=== PATIENT | female | born 1970 | race Caucasian/White ===

== ENCOUNTER 2016-10-05 13:17 | Emergency (ER) | payer OTHER ==
[2016-10-05 14:39] VITALS: BP 130/75; PULSE 90; RESP 20; TEMP 98.6; O2SAT 98
[2016-10-05] MEDS ORDERED: IPRATROPIUM/ALBUTEROL 3 ML DEYVIAL IH ONE (15:55)
--- NOTE | 2016-10-05 15:56 | UCPHY ---
H & P Time Seen by Provider: 10/05/16 15:46 Patient Type: New HPI/ROS: 45-year-old female presents complaining of severe cough, productive of phlegm. She states his recently treated for sinusitis with Augmentin and she is on day number 7. She has a ProAir inhaler which she often uses however no diagnosis of asthma Review of systems As per HPI General positive fever positive chills no weakness HEENT no eye pain no eye discharge. No eye redness, no sore throat Respiratory positive cough, no shortness of breath Cardiac no chest pain, no peripheral edema GI no abdominal pain, no diarrhea, no constipation, no nausea, no vomiting no flank pain, no hematuria, no dysuria Musculoskeletal positive myalgias, no joint pain Heme no easy bruising, no easy bleeding Endo no polyuria, no polydipsia Skin no rashes, no pruritus Neuro no syncope, no dizziness, no headaches Psych is no suicidal ideation, no homicidal ideation Past Medical/Surgical History: Sinusitis Social History: Alcohol socially, denies drug use Smoking Status: Never smoked Physical Exam: 45-year-old female with coarse cough Alert and oriented nontoxic appearance, no acute distress afebrile Atraumatic normocephalic Extraocular muscles intact, anicteric Nares mild yellowish discharge Oropharynx mild erythema no tonsillar swelling no exudate no uvular deviation, tolerating own secretions Neck supple no lymphadenopathy Lungs clear to auscultation bilaterally, no wheezing however bronchospastic cough Heart regular rate and rhythm Abdomen normoactive bowel sounds soft nontender Extremities no cyanosis clubbing or edema Skin no rash Constitutional: Initial Vital Signs Temperature (C) 37.0 C 10/05/16 14:35 Heart Rate 90 10/05/16 14:35 Respiratory Rate 20 10/05/16 14:35 Blood Pressure 130/75 H 10/05/16 14:35 O2 Sat (%) 98 10/05/16 14:35 O2 Delivery Mode Room Air Allergies/Adverse Reactions: No Known Allergies Allergy (Unverified 10/05/16 14:34) Home Medications: Medication Instructions Recorded AZITHROMYCIN [Z-PACK] 250 mg PO DAILY #6 tab 10/05/16 Advil 10/05/16 Augmentin 875 MG TAB (*) 10/05/16 Flonase Nasal Dixon 10/05/16 Mucinex 600 MG (*) 10/05/16 Proair Hfa Icu (*) 10/05/16 methylPREDNISolone [Medrol Dose 1 each PO AD #1 ea 10/05/16 Daniel] Medical Decision Making - Diagnostics Imaging: Chest x-ray positive for left lower lobe infiltrate versus atelectasis ED Course/Re-evaluation: Patient seen and evaluated for worsening cough, fevers chills body aches. Influenza negative Chest x-ray with left lower lobe infiltrate, small Differential diagnosis considered Bronchitis, pneumonia, influenza Impression Pneumonia Patient already currently on Augmentin Will add azithromycin and Medrol Dosepak taper Advised to follow up with her primary care physician - Data Points Laboratory Results: 10/05/16 15:58 Influenza Typ A,B (DFA) NEGATIVE FOR FLU (NEGATIVE) Medications Given: Discontinued Medications Albuterol/Ipratropium (Duoneb) 3 ml IH EDNOW ONE Stop: 10/05/16 15:56 Last Admin: 10/05/16 16:00 Dose: 3 ml Departure - Departure Disposition: Home, Routine, Self-Care Clinical Impression: Pneumonia Condition: Good Instructions: Pneumonia (ED) Additional Instructions: He may use your inhaler 2 puffs every 4 hours as needed for cough. I am prescribing a Zithromax an antibiotic to add to her current regimen. I am also giving you a Medrol Dosepak, you may start that tonight by taking the 2 before breakfast dose tonightThe patient was evaluated and managed by the Physician [employer]. My co-signature indicates that I have reviewed this chart and I agree with the findings and plan of care as documented. I am the secondary supervising physician. Referrals: BASILIA ARROYO [Primary Care Provider] - As per Instructions Prescriptions: AZITHROMYCIN [Z-PACK] 250 mg PO DAILY #6 tab methylPREDNISolone [Medrol Dose Daniel] 1 each PO AD #1 ea - PQRS PQRS Measurement: na
== END 2016-10-05 16:30 | disposition home or self-care (01) ==
LOC: CED 13:17
DX: R05 Cough (principal)
CPT/HCPCS: 71020-PO; 87400-PO; 99203-PO; G0463-PO